=== PATIENT | male | born 1965 | race Caucasian/White ===

== ENCOUNTER 2018-11-25 10:04 | Day surgery (SDC) | payer OTHER ==
[2018-11-25] MEDS ORDERED: MIDAZOLAM 1 MG/ML 2 ML INJ ×2 (12:01→12:02)
[2018-11-25] MEDS ORDERED: FENTAnyl 50 MCG/ML VIAL (12:02)
== END 2018-11-25 15:27 | disposition home or self-care (01) ==
LOC: GIL 10:04
DX: Z12.11 Encounter for screening for malignant neoplasm of colon (principal); K64.8 Other hemorrhoids
CPT/HCPCS: 45378